=== PATIENT | female | born 1990 | race Caucasian/White ===

== ENCOUNTER 2019-03-04 10:12 | Inpatient (IN) ==
[2019-03-04] MEDS ORDERED: METOCLOPRAMIDE HCL 5 MG/ML VIAL IV ONE (10:29)
[2019-03-04] MEDS ORDERED: PENICILLIN G POTASSIUM 5 MILLIONUNT in DEXTROSE 5 % IN WATER 100 ML IV ONE ×2 (10:29)
[2019-03-04] MEDS ORDERED: DEXTROSE 5%-LACTATED RINGERS 1,000 ML IV PRN ×2 (10:29→12:24)
[2019-03-04] MEDS ORDERED: OXYTOCIN/DEXTROSE 5%-WATER 30 UNITS/500 ML BAG IV ONE (10:29)
[2019-03-04] MEDS ORDERED: diphenhydrAMINE HCL 50 MG/ML VIAL IV ONE (10:29)
[2019-03-04] MEDS ORDERED: RINGER'S SOLUTION,LACTATED 1,000 ML IV ONE (10:29)
[2019-03-04 10:47] LABS: Hematocrit 35.7 % (37.0-47.0); Mean Cell Volume 92.7 fl (78-100); Mean Corpuscular Hemoglobin 31.2 pg (27-31); Mean Corpuscular Hgb Conc 33.6 g/dl (32-36); Mean Platelet Volume 10.2 fl (8-12.5); Neutrophil # 5.6 K/mm3 (1.3-6.0); Neutrophil % 70.8 % (42-75.0); Platelet Count 208 K/mm3 (150-450); Red Blood Count 3.85 M/mm3 (4.2-5.4); Red Cell Distribution Width 12.8 % (11.5-14.0); White Blood Count 7.9 K/mm3 (4.0-10.5)
[2019-03-04 11:01] LABS: Albumin * 2.7 gm/dl (3.4-5.0); Anion Gap 16.9 mmol/L (6.8-13.8); BUN/Creatinine Ratio 10.9 (9.0-21.6); Bilirubin, Total 0.3 mg/dL (0.0-1.1); Ca. Corrected For Albumin 9.3 mg/dL (8.4-10.2); Calcium * 8.6 mg/dL (7.9-10.9); Potassium 3.9 mmol/L (3.4-4.6); Total Protein 6.5 gm/dL (6.2-8.2)
[2019-03-04 11:06] LABS: Random Urine Total Protein Less than 6.0 mg/dL (0-12)
[2019-03-04 11:09] LABS: Cocaine Ur Negative (NEGATIVE); Urine Barbiturate Negative (NEGATIVE); Urine Benzodiazepines Negative (NEGATIVE); Urine Opiates Negative (NEGATIVE); Urine PCP Negative (NEGATIVE); Urine THC Negative (NEGATIVE)
[2019-03-04] MEDS: MISOPROSTOL 100 MCG TABLET VG PRN ×2 (11:13→15:21)
[2019-03-04] MEDS ORDERED: diphenhydrAMINE HCL 50 MG/ML VIAL IV PRN (11:45)
[2019-03-04] MEDS: PENICILLIN G POTASSIUM 2.5 MILLIONUNT in DEXTROSE 5 % IN WATER 100 ML IV SCH ×6 (15:11→22:55)
[2019-03-04] MEDS: METOCLOPRAMIDE HCL 5 MG/ML VIAL IV PRN ×2 (17:06→17:22)
--- NOTE | 2019-03-04 17:31 | HP ---
Chief Complaint - Chief Complaint Date of Service: 03/04/19 Time of Service: 17:06 Chief Complaint: elevated BPs, CONTI History of Present Illness: 28 yo at 37 2/7 weeks presents to L&D for induction of labor due to Preeclampsia. Patient presented this am to office for routine OB appt complaining of frequent reoccurring CONTI x 1 wk which resolves temporarily with Tylenol, but quickly returns. She denies visual changes, epigastric pain, edema, decrease FM, frequent contractions, LOF, vaginal bleeding. BPs in office were 142/95, 150/100, 147/101, 150/102. This complicated by anemia, h/o GDM, h/o preeclampsia, migraines, obesity. Rh positive Rubella nonimmune GBS positive. Medical History (Updated 12/24/18 @ 11:39 by Jaqui Chan RN) History of gestational diabetes (Chronic) History of pre-eclampsia (Chronic) Migraine Onset Date: Unknown no aura Obesity Onset Date: Unknown Tattoos Onset Date: Unknown Wears glasses Onset Date: Unknown Gestational diabetes Onset Date: Unknown Pre-eclampsia Onset Date: ~2013 Onset Date: ~2013 Surgical History: Surgical History (Updated 08/13/18 @ 20:06 by Allan Ventura DO) History of removal of cyst Onset Date: ~1992 cyst removed from face-benign [place] teeth extracted Onset Date: Unknown Family History: Family History (Updated 07/31/18 @ 10:45 by Traci Yarbrough RN) Mother Thyroid disease Father Alive and well Grandmother Cancer breast Grandmother Thyroid disease Aunt Thyroid disease Social History: (Last Updated 03/04/19 @ 10:28 by Allan Ventura DO) Social History: adopted: No care home: No Marital status: household members: spouse, children number of children: 1 current occupational status: employed current occupation: Retail Sales current occupational exposures/hazards: No Highest education level completed: some college, no degree Sexually Active: Yes Service: No Tobacco: Smoking Status: Never smoker Alcohol: alcohol intake: current alcohol intake frequency: a few times a month details: none with Substance Use: substance use type: does not use Dietary Habits: caffeine: Yes caffeine comment: monthly Type: carbonated beverages, coffee Exercise: Physical activity type: none frequency: 5-6 times per week Personal Safety: do you feel safe at home: Yes victim of emotional abuse: No victim of sexual abuse: No Review Of Systems (GEN) - Review of Systems Generalized/Overall Review: Present: No Symptoms Reported EENTM: Present: No Symptoms Reported Respiratory: Present: No Symptoms Reported Cardiac: Present: No Symptoms Reported Abdominal: Present: No Symptoms Reported Genitourinary: Present: No Symptoms Reported Musculoskeletal: Present: No Symptoms Reported Neurological: Present: Headache Skin: Present: No Symptoms Reported Endocrine: Present: No Symptoms Reported Allergies/Adverse Reactions: Allergies Allergy/AdvReac Type Severity Reaction Status Date / Time No Known Drug Intolerances Allergy Verified 03/04/19 09:32 Home Medications: HOME MEDICATIONS aspirin 81 mg chewable tablet 81 mg PO DAILY 09/17/18 [Last Taken 03/04/19] magnesium 200 mg tablet 200 mg PO DAILY 09/17/18 [Last Taken 03/03/19] ferrous sulfate 325 mg (65 mg iron) tablet,delayed release 325 mg PO DAILY #30 tab 12/24/18 [Last Taken 03/03/19] ascorbic acid (vitamin C) 500 mg tablet 500 mg PO DAILY 01/21/19 [Last Taken 03/03/19] Vits96/Iron Fum/Folic [ S] 1 tab PO DAILY 03/01/19 [Last Taken 03/04/19] Exam - Exam Vital Signs: Vital Signs - Last Taken Temp 36.8 C 03/04/19 11:01 Pulse 85 03/04/19 11:01 Resp 18 03/04/19 11:01 BP 131/82 03/04/19 11:01 Pulse Ox 97 03/04/19 11:01 BP 141/99 at 1026 Constitutional: Present: Alert, Oriented x3, Cooperative, No distress ENT Exam: Present: hearing grossly normal Breasts: Present: Exam deferred Respiratory: Present: lungs clear, no respiratory distress Cardiovascular/Chest: Present: regular rate, rhythm, no edema Abdomen: Present: soft, nontender, no rebound tenderness, no hepatospenomegaly, other - gravid /Rectal: Present: Other - cervix - FT/25/-3 Extremity: Present: no pedal edema, no calf tenderness Skin Exam: Present: normal color, warm/dry, no cyanosis Neurologic: Present: alert, normal mood/affect, oriented x 3, other - DTR - 2/4, no clonus Appearance: Present: appropriate appearance, appropriate insight Eye contact: Present: cooperative, good eye contact Thoughts: Present: normal thought pattern Diagnostic Studies: Abnormal Lab Results 03/04/19 03/04/19 03/04/19 Range/Units 10:40 10:40 10:40 RBC 3.85 L (4.2-5.4) M/mm3 Hgb 12.0 L (12.5-16.0) gm/dL Hct 35.7 L (37.0-47.0) % MCH 31.2 H (27-31) pg Carbon Dioxide 20.0 L (24-32.6) mmol/L Anion Gap 16.9 H (6.8-13.8) mmol/L Est GFR (Non-Af Amer) 138 H D (60-130) mL/min ALT 9 L (19-67) U/L Albumin 2.7 L (3.4-5.0) gm/dl Ur Random Creatinine 16.9 L (60-200) mg/dL U [place] Prot/Creat Ratio 355 H (0-199) mg/gm Laboratory Results WBC 7.9 K/mm3 (4.0-10.5) 03/04/19 10:40 RBC 3.85 M/mm3 (4.2-5.4) L 03/04/19 10:40 Hgb 12.0 gm/dL (12.5-16.0) L 03/04/19 10:40 Hct 35.7 % (37.0-47.0) L 03/04/19 10:40 MCV 92.7 fl (78-100) 03/04/19 10:40 MCH 31.2 pg (27-31) H 03/04/19 10:40 MCHC 33.6 g/dl (32-36) 03/04/19 10:40 RDW 12.8 % (11.5-14.0) 03/04/19 10:40 Plt Count 208 K/mm3 (150-450) 03/04/19 10:40 MPV 10.2 fl (8-12.5) 03/04/19 10:40 Immature Gran % (Auto) 0.10 % (0.001-0.429) 03/04/19 10:40 Immature Gran # (Auto) 0.01 K/mm3 (0.000-0.0310) 03/04/19 10:40 70.8 % (42-75.0) 03/04/19 10:40 23.2 % (20-51) 03/04/19 10:40 5.2 % (0.0-9) 03/04/19 10:40 0.4 % (0.0-3.0) 03/04/19 10:40 0.3 % (0.0-1.0) 03/04/19 10:40 Nucleated RBC % 0.0 k/mm3 (0-1) 03/04/19 10:40 5.6 K/mm3 (1.3-6.0) 03/04/19 10:40 1.83 k/mm3 (1.5-3.5) 03/04/19 10:40 0.4 k/mm3 (0.0-1.0) 03/04/19 10:40 0.0 k/mm3 (0.0-0.7) 03/04/19 10:40 Absolute Basophils 0.0 k/mm3 (0.0-0.1) 03/04/19 10:40 Sodium 137 mmol/L (132-142) 03/04/19 10:40 137 mmol/L (130-142) 03/04/19 10:40 Potassium 3.9 mmol/L (3.4-4.6) 03/04/19 10:40 Chloride 104 mmol/L (97-106) 03/04/19 10:40 Carbon Dioxide 20.0 mmol/L (24-32.6) L 03/04/19 10:40 16.9 mmol/L (6.8-13.8) H 03/04/19 10:40 BUN 6 mg/dL (3-23) 03/04/19 10:40 0.55 mg/dL (0.4-1.4) 03/04/19 10:40 Est GFR (Non-Af Amer) 138 mL/min (60-130) H D 03/04/19 10:40 10.9 (9.0-21.6) 03/04/19 10:40 95 mg/dL (70-110) 03/04/19 10:40 Calcium 8.6 mg/dL (7.9-10.9) 03/04/19 10:40 Calcium Adj for Albumin 9.3 mg/dL (8.4-10.2) 03/04/19 10:40 0.3 mg/dL (0.0-1.1) 03/04/19 10:40 AST 11 U/L (0-48) 03/04/19 10:40 ALT 9 U/L (19-67) L 03/04/19 10:40 103 U/L (50-170) 03/04/19 10:40 6.5 gm/dL (6.2-8.2) 03/04/19 10:40 2.7 gm/dl (3.4-5.0) L 03/04/19 10:40 Ur Random Creatinine 16.9 mg/dL (60-200) L 03/04/19 10:40 U Random Total Protein Less than 6.0 mg/dL (0-12) 03/04/19 10:40 U [place] Prot/Creat Ratio 355 mg/gm (0-199) H 03/04/19 10:40 Negative (NEGATIVE) 03/04/19 10:40 Negative (NEGATIVE) 03/04/19 10:40 Ur Phencyclidine Scrn Negative (NEGATIVE) 03/04/19 10:40 Urine Amphetamine Negative (NEGATIVE) 03/04/19 10:40 U Benzodiazepines Scrn Negative (NEGATIVE) 03/04/19 10:40 Negative (NEGATIVE) 03/04/19 10:40 Negative (NEGATIVE) 03/04/19 10:40 Assessment/Plan - Assessment/Plan (1) Preeclampsia Assessment: Admit for induction of labor. Epidural PRN. Seizure precautions. Problem: Acute Qualifiers: Trimester: third trimester Qualified Code(s): O14.93 - Unspecified pre- eclampsia, third trimester (2) Headache Assessment: IV Benadryl/Reglan protocol, Tylenol. If CONTI persists, will start on magnesium sulfate for seizure precaution due to severe features associated with preeclampsia. Problem: Acute Qualifiers: Headache type: unspecified Headache chronicity pattern: episodic headache Intractability: not intractable Qualified Code(s): R51 - Headache (3) Group B streptococcal carriage complicating Assessment: IV PCN per GBS protocol. Problem: Acute (4) Anemia Assessment: Continue FeSO4 PP. Problem: Acute Qualifiers: Anemia type: iron deficiency Iron deficiency anemia type: inadequate dietary iron intake Qualified Code(s): D50.8 - Other iron deficiency anemias
[2019-03-05] MEDS: PENICILLIN G POTASSIUM 2.5 MILLIONUNT in DEXTROSE 5 % IN WATER 100 ML IV SCH ×10 (02:58→18:29)
[2019-03-05] MEDS ORDERED: ONDANSETRON HCL/PF 2 MG/ML VIAL IV PRN (11:36)
[2019-03-05] MEDS ORDERED: NALOXONE HCL 1 MG/1 ML SYRG IV PRN (11:36)
[2019-03-05] MEDS ORDERED: BUPIVACAINE HCL/0.9 % NACL/PF 250 ML EP PRN (11:36)
[2019-03-05] MEDS ORDERED: BUPIVACAINE HCL/PF 30 ML VIAL EP SCH (11:45)
--- NOTE | 2019-03-05 11:49 | ANES ---
Anesthesia Pre Procedure Eval Vitals/Labs: Last Vital Signs Temp 36.8 C 03/04/19 11:01 Pulse 85 03/04/19 11:01 Resp 18 03/04/19 11:01 BP 131/82 03/04/19 11:01 Pulse Ox 97 03/04/19 11:01 HOME MEDICATIONS aspirin 81 mg chewable tablet 81 mg PO DAILY 09/17/18 [Last Taken 03/04/19] magnesium 200 mg tablet 200 mg PO DAILY 09/17/18 [Last Taken 03/03/19] ferrous sulfate 325 mg (65 mg iron) tablet,delayed release 325 mg PO DAILY #30 tab 12/24/18 [Last Taken 03/03/19] ascorbic acid (vitamin C) 500 mg tablet 500 mg PO DAILY 01/21/19 [Last Taken 03/03/19] Vits96/Iron Fum/Folic [ S] 1 tab PO DAILY 03/01/19 [Last Taken 03/04/19] Allergies/Adverse Reactions: Allergies Allergy/AdvReac Type Severity Reaction Status Date / Time No Known Drug Intolerances Allergy Verified 03/04/19 09:32 - Planned Procedure Planned Procedure: MEDICAL INDUCTION 37 WEEKS 2 DAYS Medication List Reviewed:: Yes Allergies Verified: Yes Medical History (Updated 03/04/19 @ 17:31 by Allan Ventura DO) History of pre-eclampsia (Chronic) Migraine Onset Date: Unknown no aura Obesity Onset Date: Unknown Tattoos Onset Date: Unknown Wears glasses Onset Date: Unknown Gestational diabetes Onset Date: Unknown Pre-eclampsia Onset Date: ~2013 Onset Date: ~2013 Surgical History (Updated 03/04/19 @ 17:31 by Allan Ventura DO) History of removal of cyst Onset Date: ~1992 cyst removed from face-benign [place] teeth extracted Onset Date: Unknown Family History (Updated 07/31/18 @ 10:45 by Traci Yarbrough RN) Mother Thyroid disease Father Alive and well Grandmother Cancer breast Grandmother Thyroid disease Aunt Thyroid disease - Cardiovascular Tolerate Activity: Good Heart Sounds: S1 & S2, Regular - Anesthesia Assessment and Plan ASA Class: PS, II Anesthesia Type Plan: Epidural
--- NOTE | 2019-03-05 12:20 | ANES ---
Anesthesia Procedure Note Procedure Note: ANESTHESIA PROCEDURE NOTE Date of Procedure: 03/05/2019. Time of procedure: 1200. Performed by: Galileo Ribeiro CRNA Surface Boss: None. Preprocedure diagnosis: Active labor. Post procedure diagnosis: Same. Procedure: Insertion of labor epidural. Indications: The patient is a 28-year-old female in active labor requesting labor epidural for pain management. Findings: See below. Details of the procedure: The patient was placed in a sitting position. DuraPrep as well as Betadine swabs X3 was applied to the patient's back. Patient was then draped in a sterile fashion. Lidocaine 1% was infiltrated to the skin and subcutaneous tissues at the level of the L3-4 interspace. The epidural space was identified using a 18-gauge Tuohy needle with [id number] technique. Epidural catheter was inserted to a depth of 11 centimeters at skin. Negative test dose was elicited using 3 mL of 1.5% preservative-free lidocaine plus epinephrine 1 200,000. The epidural catheter was then taped and secured in place. A loading dose of 8 mL of 0.25% preservative-free bupivacaine was administered to the epidural catheter after negative aspiration for blood and CSF. EBL: Minimal. Fluids: N/A. Specimen: N/A. Post procedure condition: The patient tolerated the procedure well. No complications were noted. Thank you for this consultation. Galileo Ribeiro CRNA
--- NOTE | 2019-03-05 12:20 | ANES ---
Post Anesthesia Assessment - Vital Signs Vitals: Last Vital Signs Temp 36.8 C 03/04/19 11:01 Pulse 85 03/04/19 11:01 Resp 18 03/04/19 11:01 BP 131/82 03/04/19 11:01 Pulse Ox 97 03/04/19 11:01 Airway Patency: Normal - Mental Status Level Of Consciousness: Awake - N/V Assessment Nausea/Vomiting Presence: None Dehydration:: No
--- NOTE | 2019-03-05 17:41 | PN ---
Progess Note - Interim Date: 03/05/19 Time: 17:37 Narrative: 03/05/19 17:38 Patient comfortable with epidural. Denies headache, visual changes, or epigastric pain Vital signs stable. Pitocin at 6 mu/min. FHT: 130 baseline, reassuring contractions q 2-3 min Cervix: 5/80/-2, AROM-clear Impression: Intrauterine at 37 3/7 weeks induction of labor for preeclampsia Plan: Continue present plan
[2019-03-05] MEDS ORDERED: OXYTOCIN/DEXTROSE 5%-WATER 30 UNITS/500 ML BAG IV ONE (23:08)
[2019-03-05] MEDS ORDERED: oxyCODONE HCL/ACETAMINOPHEN 1 TAB TABLET PO PRN (23:08)
[2019-03-05] MEDS ORDERED: BENZOCAINE/MENTHOL 81 SPRAY CAN TP PRN (23:08)
[2019-03-05] MEDS ORDERED: SENNOSIDES 8.6 MG TABLET PO PRN (23:08)
[2019-03-05] MEDS ORDERED: BISACODYL 10 MG SUPP.RECT RC PRN (23:08)
[2019-03-05] MEDS ORDERED: HYDROCORTISONE 30 APPL TUBE TP PRN (23:08)
[2019-03-05] MEDS ORDERED: GLYCERIN/WITCH HAZEL LEAF 40 APPL BOX TP PRN (23:08)
--- NOTE | 2019-03-05 23:10 | OR ---
Operative Report - Dictated Report Narrative: Spontaneous vaginal delivery of vigorously crying viable male at 2252 on 03/05/2019 with Apgars 9 and 9, weighing 2605 g in OP presentation. Cord clamping delayed approximately 1 minute Placenta delivered complete, intact, with three vessel cord Estimated blood loss: Less than 50 ml Anesthesia: Epidural Lacerations: None History for MU History for MU Definition: * The number of deliveries resulting in a live the patient experienced prior to current hospitalization * The previous delivery of live twins or any live multiple gestation is considered one live event. *If primagravida or nulliparous is documented select zero for the number of previous live births. Live Events: Live Events: 1
[2019-03-06] MEDS: IBUPROFEN 800 MG TABLET PO PRN ×3 (01:07→20:03)
--- NOTE | 2019-03-06 08:31 | PN ---
Subjective - Date and Time Seen Date: 03/06/19 Time: 08:30 Objective - Vitals Vitals: Last Vital Signs Temp 35.6 C L 03/06/19 07:26 Pulse 56 L 03/06/19 07:26 Resp 16 03/06/19 07:26 BP 129/76 03/06/19 07:26 Pulse Ox 100 03/06/19 07:26 Patient denies complaints. Specifically denies headache, visual changes, or epigastric pain. Lochia wnl abdomen - soft, nontender Uterus -firm, at umbilicus - 1 no calf tenderness Impression: day #1 - s/p spontaneous vaginal delivery. Preeclampsia- resolved Plan: Continue routine care Cauti Physician Documentation - Urinary Catheter Management Urethral ([place]) Date of Insertion: 03/04/19 Time of Insertion: 12:00 Assessment/Plan - Problems/Diagnosis (1) Preeclampsia Problem: Acute Qualifiers: Trimester: third trimester Qualified Code(s): O14.93 - Unspecified pre- eclampsia, third trimester (2) Headache Problem: Acute Qualifiers: Headache type: unspecified Headache chronicity pattern: episodic headache Intractability: not intractable Qualified Code(s): R51 - Headache (3) Group B streptococcal carriage complicating Problem: Acute (4) Anemia Problem: Acute Qualifiers: Anemia type: iron deficiency Iron deficiency anemia type: inadequate dietary iron intake Qualified Code(s): D50.8 - Other iron deficiency anemias
[2019-03-06] MEDS: FERROUS SULFATE 325 MG TABLET PO SCH (11:15)
[2019-03-06] MEDS: PRENATAL VITS96/IRON FUM/FOLIC 1 TAB TABLET PO SCH (11:15)
[2019-03-06] MEDS: ASCORBIC ACID 500 MG TABLET PO SCH (11:21)
[2019-03-06] MEDS: DOCUSATE SODIUM 100 MG CAPSULE PO SCH ×2 (11:21→20:03)
[2019-03-06] MEDS: MAGNESIUM OXIDE 400 MG TABLET PO SCH (11:21)
[2019-03-06] MEDS: oxyCODONE HCL/ACETAMINOPHEN 1 TAB TABLET PO PRN (20:03)
[2019-03-07] MEDS: oxyCODONE HCL/ACETAMINOPHEN 1 TAB TABLET PO PRN (00:56)
--- NOTE | 2019-03-07 07:51 | PN ---
Subjective - Date and Time Seen Date: 03/07/19 Time: 07:51 Objective - Vitals Vitals: Last Vital Signs Temp 36.4 C 03/07/19 00:00 Pulse 68 03/07/19 00:00 Resp 18 03/07/19 00:00 BP 133/68 03/07/19 00:00 Pulse Ox 98 03/07/19 00:00 Patient denies complaints. Lochia wnl abdomen - soft, nontender Uterus -firm, at umbilicus - 2 no calf tenderness Impression: day #2 - s/p spontaneous vaginal delivery. Plan: Routine discharge instructions Cauti Physician Documentation - Urinary Catheter Management Urethral ([place]) Date of Insertion: 03/04/19 Time of Insertion: 12:00 Assessment/Plan - Problems/Diagnosis (1) Preeclampsia Problem: Acute Qualifiers: Trimester: third trimester Qualified Code(s): O14.93 - Unspecified pre- eclampsia, third trimester (2) Headache Problem: Acute Qualifiers: Headache type: unspecified Headache chronicity pattern: episodic headache Intractability: not intractable Qualified Code(s): R51 - Headache (3) Group B streptococcal carriage complicating Problem: Acute (4) Anemia Problem: Acute Qualifiers: Anemia type: iron deficiency Iron deficiency anemia type: inadequate dietary iron intake Qualified Code(s): D50.8 - Other iron deficiency anemias
[2019-03-07] MEDS: DOCUSATE SODIUM 100 MG CAPSULE PO SCH (10:47)
[2019-03-07] MEDS: FERROUS SULFATE 325 MG TABLET PO SCH (10:48)
[2019-03-07] MEDS: PRENATAL VITS96/IRON FUM/FOLIC 1 TAB TABLET PO SCH (10:48)
[2019-03-07] MEDS: ASCORBIC ACID 500 MG TABLET PO SCH (10:48)
[2019-03-07] MEDS: MAGNESIUM OXIDE 400 MG TABLET PO SCH (10:48)
[2019-03-07] MEDS: IBUPROFEN 800 MG TABLET PO PRN (15:54)
[2019-03-07 18:08] VITALS: BP 142/82
== END 2019-03-07 19:15 | disposition home or self-care (01) | DRG 807 ==
LOC: OB 10:12
PROVIDERS: ADMIT Obstetrics & Gynecology; ATTEND Obstetrics & Gynecology
CPT/HCPCS: 36415; 59025; 80053; 80307; 82570; 84155; 84156; 85025; 88307

== ENCOUNTER 2019-03-14 18:05 | Observation (INO) ==
[2019-03-14 18:58] LABS: Random Urine Total Protein 16.8 mg/dL (0-12)
[2019-03-14 19:11] LABS: Hematocrit 38.8 % (37.0-47.0); Mean Corpuscular Hemoglobin 31.2 pg (27-31); Mean Corpuscular Hgb Conc 33.5 g/dl (32-36); Neutrophil # 5.8 K/mm3 (1.3-6.0); Neutrophil % 59.6 % (42-75.0); Platelet Count 359 K/mm3 (150-450); Red Blood Count 4.17 M/mm3 (4.2-5.4); Red Cell Distribution Width 12.4 % (11.5-14.0); White Blood Count 9.7 K/mm3 (4.0-10.5)
[2019-03-14] MEDS ORDERED: NIFEdipine 30 MG TAB.SR.24H PO ONE (19:15)
[2019-03-14 19:16] LABS: Albumin * 3.1 gm/dl (3.4-5.0); Anion Gap 14.3 mmol/L (6.8-13.8); BUN/Creatinine Ratio 25.8 (9.0-21.6); Bilirubin, Total 0.4 mg/dL (0.0-1.1); Ca. Corrected For Albumin 9.2 mg/dL (8.4-10.2); Calcium * 8.8 mg/dL (7.9-10.9); Carbon Dioxide 24.5 mmol/L (24-32.6); Potassium 3.8 mmol/L (3.4-4.6); Total Protein 7.1 gm/dL (6.2-8.2)
[2019-03-14] MEDS ORDERED: ACETAMINOPHEN 500 MG TABLET PO ONE (19:32)
[2019-03-14] MEDS ORDERED: LABETALOL HCL 5 MG/ML VIAL IV ONE (21:03)
[2019-03-15] MEDS ORDERED: diphenhydrAMINE HCL 50 MG/ML VIAL IV ONE (01:50)
[2019-03-15] MEDS: METOCLOPRAMIDE HCL 5 MG/ML VIAL IV PRN ×2 (02:49→04:24)
--- NOTE | 2019-03-15 04:05 | HP ---
Chief Complaint - Chief Complaint Date of Service: 03/14/19 Time of Service: 19:30 Chief Complaint: elevated BP at home History of Present Illness: The patient is PPD 9 s/p for IOL for pre-eclampsia. She reported a headache that was relieved by tylenol. She denies abdominal pain or visual disturbances. Medical History (Updated 03/10/19 @ 12:04 by Traci Yarbrough RN) History of pre-eclampsia (Chronic) Pre-eclampsia Onset Date: ~05/2014 & 03/05/19 Migraine Onset Date: Unknown no aura Obesity Onset Date: Unknown Tattoos Onset Date: Unknown Wears glasses Onset Date: Unknown Gestational diabetes Onset Date: ~05/2014 Onset Date: ~2013 Surgical History: Surgical History (Updated 03/04/19 @ 17:31 by Allan Ventura DO) History of removal of cyst Onset Date: ~1992 cyst removed from face-benign [place] teeth extracted Onset Date: Unknown Family History: Family History (Updated 07/31/18 @ 10:45 by Traci Yarbrough RN) Mother Thyroid disease Father Alive and well Grandmother Cancer breast Grandmother Thyroid disease Aunt Thyroid disease Social History: (Last Reviewed 03/14/19 @ 21:53 by Julita Park RN) Social History: adopted: No fpc: No Marital status: household members: spouse, children number of children: 1 current occupational status: employed current occupation: Retail Sales current occupational exposures/hazards: No Highest education level completed: some college, no degree Sexually Active: Yes Service: No Tobacco: Smoking Status: Never smoker Alcohol: alcohol intake: current alcohol intake frequency: a few times a month details: none with Substance Use: substance use type: does not use Dietary Habits: caffeine: Yes caffeine comment: monthly Type: carbonated beverages, coffee Exercise: Physical activity type: none frequency: 5-6 times per week Personal Safety: do you feel safe at home: Yes victim of emotional abuse: No victim of sexual abuse: No Review Of Systems (GEN) - Review of Systems Generalized/Overall Review: Present: No Symptoms Reported Neurological: Present: Headache Misc: All systems neg except as marked Immunizations: IMMUNIZATION HX Immunizations Up to Date Yes Allergies/Adverse Reactions: Allergies Allergy/AdvReac Type Severity Reaction Status Date / Time No Known Drug Intolerances Allergy Verified 03/14/19 21:53 Home Medications: HOME MEDICATIONS magnesium 200 mg tablet 1,000 mg PO DAILY 09/17/18 [Last Taken 03/03/19] ferrous sulfate 325 mg (65 mg iron) tablet,delayed release 325 mg PO DAILY #30 tab 12/24/18 [Last Taken 03/03/19] ascorbic acid (vitamin C) 500 mg tablet 500 mg PO DAILY 01/21/19 [Last Taken 0 03/03/19] Vits96/Iron Fum/Folic [ S] 1 tab PO DAILY 03/01/19 [Last Taken 03/04/19] Ibuprofen [Motrin] 200 - 800 mg PO Q6H PRN #100 tab 03/07/19 [Last Taken 03/14/19 11:00 800 mg] Exam - Exam Vital Signs: Vital Signs - Last Taken Temp 35.9 C L 03/14/19 21:43 Pulse 66 03/15/19 03:00 Resp 18 03/14/19 21:43 BP 130/76 03/15/19 03:00 Pulse Ox 93 03/15/19 03:00 Constitutional: Present: Alert, Oriented x3, Cooperative Respiratory: Present: lungs clear, normal breath sounds Cardiovascular/Chest: Present: regular rate, rhythm, no murmur Abdomen: Present: soft, nontender, nondistended Extremity: Present: non-tender, no calf tenderness Skin Exam: Present: normal color, warm/dry, no cyanosis Appearance: Present: appropriate appearance Eye contact: Present: cooperative Thoughts: Present: normal thought pattern Diagnostic Studies: Abnormal Lab Results 03/14/19 03/14/19 03/14/19 Range/Units 18:34 19:00 19:00 RBC 4.17 L (4.2-5.4) M/mm3 MCH 31.2 H (27-31) pg Immature Gran # (Auto) 0.04 H (0.000-0.0310) K/mm3 Anion Gap 14.3 H (6.8-13.8) mmol/L BUN/Creatinine Ratio 25.8 H (9.0-21.6) ALT 12 L (19-67) U/L Albumin 3.1 L (3.4-5.0) gm/dl U Random Total Protein 16.8 H (0-12) mg/dL Laboratory Results WBC 9.7 K/mm3 (4.0-10.5) 03/14/19 19:00 RBC 4.17 M/mm3 (4.2-5.4) L 03/14/19 19:00 Hgb 13.0 gm/dL (12.5-16.0) 03/14/19 19:00 Hct 38.8 % (37.0-47.0) 03/14/19 19:00 MCV 93.0 fl (78-100) 03/14/19 19:00 MCH 31.2 pg (27-31) H 03/14/19 19:00 MCHC 33.5 g/dl (32-36) 03/14/19 19:00 RDW 12.4 % (11.5-14.0) 03/14/19 19:00 Plt Count 359 K/mm3 (150-450) 03/14/19 19:00 MPV 9.0 fl (8-12.5) 03/14/19 19:00 Immature Gran % (Auto) 0.40 % (0.001-0.429) 03/14/19 19:00 Immature Gran # (Auto) 0.04 K/mm3 (0.000-0.0310) H 03/14/19 19:00 59.6 % (42-75.0) 03/14/19 19:00 31.7 % (20-51) 03/14/19 19:00 6.8 % (0.0-9) 03/14/19 19:00 1.2 % (0.0-3.0) 03/14/19 19:00 0.3 % (0.0-1.0) 03/14/19 19:00 Nucleated RBC % 0.0 k/mm3 (0-1) 03/14/19 19:00 5.8 K/mm3 (1.3-6.0) 03/14/19 19:00 3.09 k/mm3 (1.5-3.5) 03/14/19 19:00 0.7 k/mm3 (0.0-1.0) 03/14/19 19:00 0.1 k/mm3 (0.0-0.7) 03/14/19 19:00 Absolute Basophils 0.0 k/mm3 (0.0-0.1) 03/14/19 19:00 Sodium 140 mmol/L (132-142) 03/14/19 19:00 140 mmol/L (130-142) 03/14/19 19:00 Potassium 3.8 mmol/L (3.4-4.6) 03/14/19 19:00 Chloride 105 mmol/L (97-106) 03/14/19 19:00 Carbon Dioxide 24.5 mmol/L (24-32.6) 03/14/19 19:00 14.3 mmol/L (6.8-13.8) H 03/14/19 19:00 BUN 17 mg/dL (3-23) D 03/14/19 19:00 0.66 mg/dL (0.4-1.4) 03/14/19 19:00 Est GFR (Non-Af Amer) 112 mL/min (60-130) 03/14/19 19:00 25.8 (9.0-21.6) H 03/14/19 19:00 87 mg/dL (70-110) 03/14/19 19:00 Calcium 8.8 mg/dL (7.9-10.9) 03/14/19 19:00 Calcium Adj for Albumin 9.2 mg/dL (8.4-10.2) 03/14/19 19:00 0.4 mg/dL (0.0-1.1) 03/14/19 19:00 AST 14 U/L (0-48) 03/14/19 19:00 ALT 12 U/L (19-67) L 03/14/19 19:00 102 U/L (50-170) 03/14/19 19:00 7.1 gm/dL (6.2-8.2) 03/14/19 19:00 3.1 gm/dl (3.4-5.0) L 03/14/19 19:00 Ur Random Creatinine 119.0 mg/dL (60-200) 03/14/19 18:34 U Random Total Protein 16.8 mg/dL (0-12) H 03/14/19 18:34 U [place] Prot/Creat Ratio 141 mg/gm (0-199) 03/14/19 18:34 Assessment/Plan - Narrative Narrative: 28 year old PPD 9 s/p for pre-eclampsia Normal labs. Proteinuria resolved. Received one dose of IV labetalol 20 mg x1 Started on procardia 60 mg XL Admitted for overnight observation
[2019-03-15] MEDS ORDERED: IBUPROFEN 800 MG TABLET PO ONE (09:00)
[2019-03-15] MEDS ORDERED: NIFEdipine 30 MG TAB.SR.24H PO SCH ×2 (09:00→21:00)
--- NOTE | 2019-03-15 11:45 | PN ---
Subjective - Date and Time Seen Date: 03/15/19 Time: 11:41 Subjective Narrative: The patient reports her headache is much improved. She denies any abdominal pain Objective Objective Narrative: See vital signs - Review of Systems Generalized/Overall Review: Reports: No Symptoms Reported Misc: All systems neg except as marked - Vitals Vitals: Last Vital Signs Temp 35.9 C L 03/14/19 21:43 Pulse 77 03/15/19 08:35 Resp 16 03/15/19 04:38 BP 102/61 03/15/19 08:35 Pulse Ox 93 03/15/19 03:00 - Abnormal Lab Findings Abnormal Lab Findings: Abnormal Lab Results 03/14/19 03/14/19 03/14/19 Range/Units 18:34 19:00 19:00 RBC 4.17 L (4.2-5.4) M/mm3 MCH 31.2 H (27-31) pg Immature Gran # (Auto) 0.04 H (0.000-0.0310) K/mm3 Anion Gap 14.3 H (6.8-13.8) mmol/L BUN/Creatinine Ratio 25.8 H (9.0-21.6) ALT 12 L (19-67) U/L Albumin 3.1 L (3.4-5.0) gm/dl U Random Total Protein 16.8 H (0-12) mg/dL - Exam Constitutional: Present: Alert, Oriented x3, Cooperative, No distress Abdomen: Present: soft, nontender, nondistended Extremity: Present: non-tender, no calf tenderness Skin Exam: Present: normal color, warm/dry, no cyanosis Appearance: Present: appropriate appearance Eye contact: Present: cooperative Thoughts: Present: normal thought pattern Assessment/Plan Plan Narrative: PPD 10 s/p and readmission for hypertension The patient's blood pressure is normal prior to discharge today Continue procardia 60mg PO XL Stay away from ibuprofen as it can elevate the blood pressure. Take tylenol for headache Pre-eclampsia precautions given Follow-up with Dr. Ventura as scheduled on Sunday
--- NOTE | 2019-03-15 11:48 | DS ---
(1) hypertension Problem: Acute Date of Discharge:: 03/15/19 Description of Stay: The patient was admitted overnight for blood pressure control. Her blood pressure is normal at discharge. Patient to continue her blood pressure medication. Procedures Performed: none Results and Findings: Lab Pending Results 03/14/19 18:34: Ur Random Creatinine 119.0, U Random Total Protein 16.8 H, U [place] Prot/Creat Ratio 141 03/14/19 19:00: WBC 9.7, RBC 4.17 L, Hgb 13.0, Hct 38.8, MCV 93.0, MCH 31.2 H, MCHC 33.5, RDW 12.4, Plt Count 359, MPV 9.0, Immature Gran % (Auto) 0.40, Immature Gran # (Auto) 0.04 H, Neutrophils % 59.6, Lymphocytes % 31.7, Monocytes % 6.8, Eosinophils % 1.2, Basophils % 0.3, Nucleated RBC % 0.0, Neutrophils # 5.8, Lymphocytes # 3.09, Monocytes # 0.7, Eosinophils # 0.1, Absolute Basophils 0.0 03/14/19 19:00: Sodium 140, Plasma Sodium 140, Potassium 3.8, Chloride 105, Carbon Dioxide 24.5, Anion Gap 14.3 H, BUN 17 D, Creatinine 0.66, Est GFR (Non- Af Amer) 112, BUN/Creatinine Ratio 25.8 H, Random Glucose 87, Calcium 8.8, Calcium Adj for Albumin 9.2, Total Bilirubin 0.4, AST 14, ALT 12 L, Alkaline Phosphatase 102, Total Protein 7.1, Albumin 3.1 L Discharge Location: Home Disposition: Home self-care Condition: Good Discharge Activity: Activity as tolerated Discharge Diet: General/regular food Problem Oriented Discharge Instructions to Patient/Family: Preeclampsia and Eclampsia Additional Patient Instructions (free text): Please keep scheduled appointment with Dr. Ventura on Sunday. Take tylenol for headaches. Call immediately if any signs or symptoms of preeclampsia. Prescriptions (Any new or edited meds): NIFEdipine [Procardia Xl] 60 mg PO DAILY #30 tab.sr.24h Complete Home Medications List: Complete Home Medication List: Vits96/Iron Fum/Folic [ S] 1 tab PO DAILY 03/01/19 NIFEdipine [Procardia Xl] 60 mg PO DAILY #30 tab.sr.24h 03/15/19
[2019-03-15 12:40] VITALS: BP 131/83
== END 2019-03-15 12:05 | disposition home or self-care (01) ==
LOC: ER 18:05 → OBCLINIC 18:22 → OB 18:22
PROVIDERS: ADMIT Obstetrics & Gynecology; ATTEND Obstetrics & Gynecology
DX: O16.5 Unspecified maternal hypertension, complicating the puerperium
CPT/HCPCS: 36415; 80053; 82570; 84155; 84156; 85025; 96374; 96375; G0378